=== PATIENT | female | born 1990 | race Hispanic/Latino ===

== ENCOUNTER 2018-10-31 05:18 | Emergency (ER) | payer BC ==
[2018-10-31] MEDS ORDERED: Sodium Chloride 0.9% 1,000 ML IV STA ×2 (05:45→06:40)
--- NOTE | 2018-10-31 05:55 | ED PDOC ---
HPI: Influenza Time Seen by Provider: 10/31/18 05:38 Chief Complaint: Flu-like Symptoms Chief Complaint (Provider): Flu-like Symptoms History Per: Patient Exam Limitations: no limitations Onset/Duration Of Symptoms: Hrs (x48) Additional complaint(s):: 28 year old female presents to the emergency department with a complaint of flu-like symptoms including generalized bodyaches, headache, fever, and chill for the past 48 hours. She returned from the on 10/27/18 then developed symptoms on 10/29/18. Patient denies any nausea, vomiting, diarrhea, photophobia, or urinary complaints. Additionally, she reports taking Tylenol with some relief. Past Medical History Reviewed: Historical Data, Nursing Documentation, Vital Signs Vital Signs: Last Vital Signs Temp 101.4 F H 10/31/18 05:40 Pulse 140 H 10/31/18 05:40 Resp 16 10/31/18 05:40 BP 109/60 10/31/18 05:40 Pulse Ox 100 10/31/18 05:40 Primary Care Provider: FAMILY PROVIDER,NO - Medical History PMH: No Chronic Diseases - Surgical History Surgical History: No Surg Hx - Family History Family History: States: Unknown Family Hx - Social History Current smoker - smoking cessation education provided: No Alcohol: None Drugs: Denies - Home Medications Home Medications: Ambulatory Orders Medication Instructions Recorded Ondansetron ODT [Zofran ODT] 4 mg PO Q6 PRN #8 odt 10/31/18 Oseltamivir Cap [Tamiflu] 75 mg PO BID #10 cap 10/31/18 - Allergies Allergies/Adverse Reactions: Allergies Allergy/AdvReac Type Severity Reaction Status Date / Time No Known Allergies Allergy Verified 10/31/18 05:40 Review of Systems ROS Statement: Except As Marked, All Systems Reviewed And Found Negative Constitutional: Positive for: Fever, Chills, Other (bodyaches) Eyes: Negative for: Other (photophobia) Gastrointestinal: Negative for: Nausea, Vomiting, Diarrhea Genitourinary Female: Negative for: Dysuria, Hematuria Neurological: Positive for: Headache Physical Exam - Reviewed Nursing Documentation Reviewed: Yes Vital Signs Reviewed: Yes - Physical Exam Appears: Positive for: No Acute Distress Head Exam: Positive for: ATRAUMATIC, NORMAL INSPECTION, NORMOCEPHALIC Skin: Positive for: Warm (febrile) Eye Exam: Positive for: Normal appearance, EOMI, PERRL. Negative for: Other (photophobia) ENT: Positive for: TM Is/Are (clear bilaterally. nonbulging and noneyrthematous), Other (dry mucous membranes). Negative for: Moist Mucous Membranes, Pharyngeal Erythema, Tonsillar Exudate, Tonsillar Swelling Neck: Positive for: Normal, Supple Cardiovascular/Chest: Positive for: Tachycardia. Negative for: Bradycardia Respiratory: Positive for: Normal Breath Sounds. Negative for: Wheezing, Respiratory Distress Neurological/Psych: Positive for: Awake, Alert, Normal Tone, Oriented Medical Decision Making Medical Decision Making: Initial Impression: 28 year old female with flu-like symptoms. Initial Plan: * EKG * Labs including UA * IV fluids * Toradol IV * Tamiflu PO * Tylenol PO * Blood culture * Influenza AB Time: 644 --Labs reviewed: (+) influenza B, otherwise, within normal limits. Upon provider re-evaluation, patient is medically stable, reports improvement in symptoms, and requires no further treatment in the ED at this time. Findings and plan were discussed with patient who verbalizes understanding. Patient will be discharged home with Rx for Zofran and Tamiflu. Counseling was provided and all questions were answered regarding diagnosis. There is agreement to discharge plan. Return precautions discussed. Clinical Impression: influenza Scribe Attestation: Documented by Annabel Vincent, acting as a scribe for Tacho Griffiths MD. Provider Scribe Attestation: All medical record entries made by the Scribe were at my direction and personally dictated by me. I have reviewed the chart and agree that the record accurately reflects my personal performance of the history, physical exam, medical decision making, and the department course for this patient. I have also personally directed, reviewed, and agree with the discharge instructions and disposition. - Laboratory Results Result Diagrams: 10/31/18 06:10 - ECG O2 Sat by Pulse Oximetry: 100 (RA) Pulse Ox Interpretation: Normal Disposition - Clinical Impression Clinical Impression: Influenza - Patient ED Disposition Is Patient to be Admitted: No Counseled Patient/Family Regarding: Studies Performed, Diagnosis, Rx Given - Disposition Disposition: Routine/Home Disposition Time: 06:45 Condition: IMPROVED Prescriptions: Ondansetron ODT [Zofran ODT] 4 mg PO Q6 PRN #8 odt PRN Reason: Nausea/Vomiting Oseltamivir Cap [Tamiflu] 75 mg PO BID #10 cap Instructions: Flu Forms: [employer] (Chinese), [facility] ED School/Work Excuse Patient Signed Over To: Anna Tucker Handoff Comments: pending labs
[2018-10-31 06:45] LABS: ALB/GLOB RATIO 1.4 (1.0-2.1); ALBUMIN 4.1 g/dL (3.5-5.0); ALT/SGPT 17 U/L (9-52); AST/SGOT 22 U/L (14-36); BLOOD UREA NITROGEN 9 mg/dl (7-17); CALCIUM 8.8 mg/dL (8.4-10.2); GFR NON-AFRICAN AMERICAN > 60
[2018-10-31 06:47] LABS: BASO % 0.2 % (0.0-2.0); EOS % 0.4 % (0.0-4.0); HEMOGLOBIN 13.1 g/dL (12.0-16.0); LYMPH # 0.3 K/uL (1.0-4.3); LYMPH % 5.1 % (20.0-40.0); MEAN PLATELET VOLUME 9.8 fl (7.2-11.7); MONO # 0.5 K/uL (0.0-0.8); MONO % 7.2 % (0.0-10.0); NEUT # 5.7 K/uL (1.8-7.0); NEUT % 87.1 % (50.0-75.0); NRBC % 0.1 % (0.0-0.0); PLATELET COUNT 154 K/uL (130-400); RED CELL DISTRIBUTION WIDTH 11.9 % (11.5-14.5); WHITE BLOOD COUNT 6.5 K/uL (4.8-10.8)
[2018-10-31 07:51] VITALS: BP 110/78; PULSE 87; RESP 20; TEMP 99.6; O2SAT 98
[2018-10-31 08:43] LABS: BASOPHIL 1 % (0-2); LYMPHOCYTE 5 % (20-50); MONOCYTE 8 % (0-10); NEUTROPHIL 86 % (42-75); PLATELET ESTIMATE NORMAL (NORMAL); TOTAL CELLS COUNTED 100
[2018-10-31 08:44] LABS: ANISOCYTOSIS SLIGHT; LARGE PLATELETS PRESENT; OVALOCYTES SLIGHT
--- NOTE | 2018-10-31 11:40 | CARD ---
APPROVED REPORT Date of service: 10/31/2018 EKG Measurement Heart [id number] <Conclusion> Sinus tachycardia Otherwise normal ECG
== END 2018-10-31 07:52 | disposition home or self-care (01) ==
LOC: H.ER 05:18
DX: J11.1 Influenza due to unidentified influenza virus with other respiratory manifestations (principal)
CPT/HCPCS: 80053; 81025; 83605; 85025; 87040; 87804; 93005; 96374; 96375; 99285; J1885; J2405; J7030